=== PATIENT | female | born 1995 | race African-American/Black ===

== ENCOUNTER 2017-06-06 19:56 | Emergency (ER) | payer OTHER ==
[~2017-06-06] VITALS: Ht 152.4 cm; Wt 64.9 kg
[2017-06-06] MEDS ORDERED: NORCO 5-325 TA1 EACH PO (22:14)
[2017-06-06 22:54] VITALS: BP 110/86
[2017-06-07 20:10] LABS: CHLAMYDIA TRACHOMATIS-PCR Negative (Negative); NEISSERIA GONORRHEA-PCR Negative (Negative)
== END 2017-06-06 22:56 | disposition home or self-care (01) ==
LOC: ER 19:56
PROVIDERS: Emergency Medicine
DX: N83.201 Unspecified ovarian cyst, right side (principal); J45.909 Unspecified asthma, uncomplicated

== ENCOUNTER 2017-08-29 09:11 | Emergency (ER) | payer OTHER ==
[~2017-08-29] VITALS: Ht 154.9 cm; Wt 63.5 kg
[~2017-08-29 09:11] MED LIST: NORCO 5-325 TA1 EACH PO
[2017-08-29 10:36] LABS: ABSOLUTE NEUTROPHILS 2.1 thou/uL (1.4-8.2); BASOPHILS 0.7 % (0.0-2.0); EOSINOPHILS 1.9 % (0.0-3.0); HEMATOCRIT 35.2 % (37.0-47.0); HEMOGLOBIN 11.2 gm/dL (12.0-15.0); LYMPHOCYTES 35.5 % (24.0-44.0); MCH 22.4 pg (26.0-34.0); MCHC 31.7 g/dL (28.0-37.0); MCV 70.8 fL (80.0-100.0); PLATELET COUNT 255 thou/uL (150-400); POLYS 52.9 % (36.0-66.0); RBC 4.98 mil/uL (4.20-5.00); RDW 13.9 % (10.5-14.5)
[2017-08-29 10:42] LABS: MANUAL DIFF NO
[2017-08-29 10:47] LABS: CALCIUM 8.8 mg/dL (8.5-10.1); CREATININE 0.6 mg/dL (0.6-1.0); POTASSIUM 3.4 mmol/L (3.5-5.1)
[2017-08-29 10:52] LABS: ALBUMIN 3.5 g/dL (3.4-5.0); DIRECT BILIRUBIN 0.1 mg/dL (<0.1-0.3); TOTAL BILIRUBIN 0.7 mg/dL (<0.1-1.0); TOTAL PROTEIN 7.2 g/dL (6.4-8.2)
[2017-08-29 11:19] LABS: ANISOCYTOSIS SLIGHT; HYPOCHROMASIA 2+; MICROCYTES 1+
[2017-08-29 11:56] LABS: URINE BILIRUBIN NEGATIVE (Negative); URINE BLOOD NEGATIVE (Negative); URINE COLOR YELLOW; URINE GLUCOSE-RANDOM* NEGATIVE (Negative); URINE KETONES NEGATIVE (Negative); URINE LEUKOCYTES-REFLEX NEGATIVE (Negative); URINE PROTEIN (DIPSTICK) NEGATIVE (Negative)
[2017-08-29] MEDS ORDERED: ZOFRAN ODT4 MG PO (12:28)
[2017-08-29] MEDS ORDERED: NORCO 5-325 TA1 EACH PO (12:28)
[2017-08-29 12:35] VITALS: BP 115/73
== END 2017-08-29 12:35 | disposition home or self-care (01) ==
LOC: ER 09:11
PROVIDERS: Emergency Medicine
DX: N83.291 Other ovarian cyst, right side (principal); J45.909 Unspecified asthma, uncomplicated

== ENCOUNTER 2017-09-26 19:20 | Emergency (ER) | payer OTHER ==
[~2017-09-26] VITALS: Ht 154.9 cm; Wt 71.2 kg
[~2017-09-26 19:20] MED LIST changes: +ZOFRAN ODT4 MG PO
[2017-09-26 19:33] VITALS: BP 124/83
[2017-09-26 19:57] LABS: URINE BILIRUBIN NEGATIVE (Negative); URINE BLOOD NEGATIVE (Negative); URINE COLOR YELLOW; URINE GLUCOSE-RANDOM* NEGATIVE (Negative); URINE KETONES NEGATIVE (Negative); URINE NITRITE NEGATIVE (Negative); URINE PROTEIN (DIPSTICK) NEGATIVE (Negative); URINE SPECIFIC GRAVITY 1.015 (1.003-1.035)
== END 2017-09-26 20:47 | disposition home or self-care (01) ==
LOC: ER 19:20
PROVIDERS: Nurse Practitioner
DX: Z32.02 Encounter for pregnancy test, result negative (principal); J45.909 Unspecified asthma, uncomplicated

== ENCOUNTER 2018-05-28 13:10 | Emergency (ER) | payer OTHER ==
[~2018-05-28] VITALS: Ht 154.9 cm; Wt 64.4 kg
[2018-05-28 13:27] LABS: URINE BILIRUBIN NEGATIVE (Negative); URINE BLOOD NEGATIVE (Negative); URINE CLARITY CLEAR; URINE COLOR YELLOW; URINE GLUCOSE-RANDOM* NEGATIVE (Negative); URINE KETONES NEGATIVE (Negative); URINE LEUKOCYTES-REFLEX NEGATIVE (Negative); URINE NITRITE-REFLEX NEGATIVE (Negative); URINE PROTEIN (DIPSTICK) NEGATIVE (Negative); URINE UROBILINOGEN 0.2 E.U./dl (0.2-1.0)
[2018-05-28 14:22] LABS: ABSOLUTE NEUTROPHILS 3.8 thou/uL (1.4-8.2); BASOPHILS 0.5 % (0.0-2.0); EOSINOPHILS 1.8 % (0.0-3.0); HEMATOCRIT 36.8 % (37.0-47.0); HEMOGLOBIN 11.9 gm/dL (12.0-15.0); LYMPHOCYTES 21.2 % (24.0-44.0); MCH 22.7 pg (26.0-34.0); MCHC 32.4 g/dL (28.0-37.0); MCV 70.1 fL (80.0-100.0); MONOCYTES 8.1 % (1.0-8.0); PLATELET COUNT 256 thou/uL (150-400); POLYS 68.4 % (36.0-66.0); RBC 5.26 mil/uL (4.20-5.00); RDW 13.2 % (10.5-14.5); WBC 5.5 thou/uL (4.0-11.0)
[2018-05-28 14:29] LABS: CALCIUM 9.2 mg/dL (8.5-10.1); CREATININE 0.7 mg/dL (0.6-1.0)
[2018-05-28 14:34] LABS: ALBUMIN 3.5 g/dL (3.4-5.0); TOTAL BILIRUBIN 0.2 mg/dL (<0.1-1.0); TOTAL PROTEIN 7.6 g/dL (6.4-8.2)
[2018-05-28 15:33] LABS: ANISOCYTOSIS 1+; HYPOCHROMASIA 1+; MICROCYTES 1+
[2018-05-28] MEDS ORDERED: MIRALAX17 GM PO (16:19)
[2018-05-28] MEDS ORDERED: LEVSIN0.125 MG PO (16:19)
[2018-05-28 17:14] VITALS: BP 103/64
[2018-05-30 14:06] LABS: NEISSERIA GONORRHEA-PCR Negative (Negative)
== END 2018-05-28 17:15 | disposition home or self-care (01) ==
LOC: ER 13:10
PROVIDERS: Physician Assistant
DX: K59.00 Constipation, unspecified (principal); D64.9 Anemia, unspecified; J45.909 Unspecified asthma, uncomplicated

== ENCOUNTER 2019-05-23 18:09 | Emergency (ER) | payer OTHER ==
[~2019-05-23] VITALS: Ht 154.9 cm; Wt 78.0 kg
[~2019-05-23 18:09] MED LIST changes: +LEVSIN0.125 MG PO; +MIRALAX17 GM PO
[2019-05-23 18:44] LABS: URINE BILIRUBIN NEGATIVE (Negative); URINE BLOOD NEGATIVE (Negative); URINE CLARITY CLEAR; URINE COLOR YELLOW; URINE GLUCOSE-RANDOM* NEGATIVE (Negative); URINE KETONES NEGATIVE (Negative); URINE LEUKOCYTES-REFLEX NEGATIVE (Negative); URINE NITRITE-REFLEX NEGATIVE (Negative); URINE PROTEIN (DIPSTICK) NEGATIVE (Negative); URINE UROBILINOGEN 0.2 E.U./dl (0.2-1.0)
[2019-05-23 18:54] LABS: AMP/METHAMP Negative (Negative); BARBITURATES Negative (Negative); BENZODIAZEPINES Negative (Negative); COCAINE Negative (Negative); METHADONE Negative (Negative); OPIATES Negative (Negative); PCP Negative (Negative)
[2019-05-23 18:59] LABS: BASOPHILS 0.4 % (0.0-2.0); HEMATOCRIT 36.3 % (37.0-47.0); HEMOGLOBIN 11.4 gm/dL (12.0-15.0); LYMPHOCYTES 19.8 % (24.0-44.0); MCH 22.2 pg (26.0-34.0); MCHC 31.3 g/dL (28.0-37.0); MCV 70.9 fL (80.0-100.0); MONOCYTES 10.7 % (1.0-8.0); PLATELET COUNT 287 thou/uL (150-400); POLYS 68.1 % (36.0-66.0); RBC 5.12 mil/uL (4.20-5.00); RDW 13.6 % (10.5-14.5); WBC 10.3 thou/uL (4.0-11.0)
[2019-05-23 19:09] LABS: ANION GAP 8 mmol/L (7-16); BUN 8 mg/dL (7-18); CHLORIDE 103 mmol/L (98-107); CO2 28 mmol/L (21-32); CREATININE 0.7 mg/dL (0.6-1.0); GLUCOSE 100 mg/dL (74-106); SODIUM 139 mmol/L (136-145)
[2019-05-23 19:19] LABS: ALBUMIN 3.4 g/dL (3.4-5.0); MAGNESIUM 1.8 mg/dL (1.8-2.4); SGOT 16 U/L (15-37); SGPT 16 U/L (30-65); TOTAL BILIRUBIN 0.1 mg/dL (<0.1-1.0); TOTAL PROTEIN 7.9 g/dL (6.4-8.2); TROPONIN-I <0.06 ng/mL (<0.06)
[2019-05-23 19:23] LABS: D-DIMER 0.19 ug/mLFEU (0.19-0.50); PROTIME 10.5 Seconds (9.3-11.4)
[2019-05-23 19:34] LABS: ANISOCYTOSIS 1+
[2019-05-23] MEDS ORDERED: VENTOLIN HFA 1818 GM INH (19:34)
[2019-05-23] MEDS ORDERED: NAPROSYN500 MG PO (19:34)
[2019-05-23 19:35] LABS: HYPOCHROMASIA SLIGHT; MICROCYTES 1+
[2019-05-23 20:18] VITALS: BP 108/64
--- NOTE | 2019-05-24 07:34 | EKG ---
[place] [address] [facility] [employer] [place] [address] ELECTROCARDIOGRAM REPORT Name: LUIS ARMANDO YBARRA [id number] ������������������ Admission: 05/23/19 ������������������ Attend Phys: Discharge: 05/23/19 ������������������ Date of : 89 Report #: [id number] ����������������������������������������������������������������� [id number] THIS REPORT FOR: //name// [facility] ED Test Date: 2019-05-23 Test Time: 18:41:07 Pat Name: LUIS ARMANDO YBARRA Department: Room: Gender: F [employer]: minnie [place]ipt[place] : 1995 Requested By: Praful Mays Order Number: [id number] MD: Nathanael Cao Measurements Intervals [place] Rate: 101 P: 49 ND: 144 QRS: 38 QRSD: 96 T: 19 QT: 326 QTc: 423 Interpretive Statements Sinus tachycardia Otherwise normal tracing No previous ECG available for comparison Electronically Signed On 05-24-2019 7:34:39 CDT by Nathanael Cao [email or web address] ��������������������������������������������� <ELECTRONICALLY SIGNED> ���������������������������������������� By: Nathanael Cao MD, [facility] ��������������������������������������������� 05/24/19 0734 1841 1841 Nathanael Cao MD, FACC /EPI
== END 2019-05-23 20:38 | disposition home or self-care (01) ==
LOC: ER 18:09
PROVIDERS: Emergency Medicine
DX: J45.909 Unspecified asthma, uncomplicated (principal); D50.9 Iron deficiency anemia, unspecified; R35.0 Frequency of micturition; Z79.899 Other long term (current) drug therapy

== ENCOUNTER 2019-06-19 16:33 | Emergency (ER) | payer OTHER ==
[~2019-06-19] VITALS: Ht 154.9 cm; Wt 78.0 kg
[~2019-06-19 16:33] MED LIST changes: +NAPROSYN500 MG PO; +VENTOLIN HFA 1818 GM INH
[2019-06-19 16:56] LABS: URINE BILIRUBIN NEGATIVE (Negative); URINE BLOOD TRACE (Negative); URINE CLARITY SL CLOUDY; URINE COLOR YELLOW; URINE GLUCOSE-RANDOM* NEGATIVE (Negative); URINE KETONES NEGATIVE (Negative); URINE LEUKOCYTES-REFLEX TRACE (Negative); URINE NITRITE-REFLEX NEGATIVE (Negative); URINE PROTEIN (DIPSTICK) TRACE (Negative); URINE SPECIFIC GRAVITY 1.015 (1.005-1.035); URINE UROBILINOGEN 0.2 E.U./dl (0.2-1.0)
[2019-06-19 17:42] LABS: SQUAMOUS >10 Many /LPF (0-3)
[2019-06-19 17:43] LABS: BACTERIA 1-9 Few /HPF (None Seen); CASTS None Seen /LPF (None Seen); URIC ACID CRYSTALS 4-10 Moderate /LPF (None Seen); URINE RBC 0-2 Rare /HPF (0-2)
[2019-06-19] MEDS ORDERED: KEFLEX500 M1 PO (18:06)
[2019-06-19 18:14] VITALS: BP 133/75
== END 2019-06-19 18:10 | disposition home or self-care (01) ==
LOC: ER 16:33
PROVIDERS: Nurse Practitioner Family
DX: N39.0 Urinary tract infection, site not specified (principal); R30.0 Dysuria; J45.909 Unspecified asthma, uncomplicated

== ENCOUNTER 2020-11-07 16:02 | Emergency (ER) | payer OTHER ==
[~2020-11-07] VITALS: Ht 154.9 cm; Wt 81.2 kg
[~2020-11-07 16:02] MED LIST changes: +KEFLEX500 M1 PO
[2020-11-07] MEDS ORDERED: METFORMIN HCL500 M3 PO (16:14)
[2020-11-07 16:43] LABS: URINE BILIRUBIN NEGATIVE (Negative); URINE BLOOD NEGATIVE (Negative); URINE CLARITY CLEAR; URINE COLOR YELLOW; URINE GLUCOSE-RANDOM* NEGATIVE (Negative); URINE KETONES NEGATIVE (Negative); URINE LEUKOCYTES-REFLEX NEGATIVE (Negative); URINE NITRITE-REFLEX NEGATIVE (Negative); URINE PROTEIN (DIPSTICK) NEGATIVE (Negative); URINE SPECIFIC GRAVITY 1.025 (1.005-1.035)
[2020-11-07 19:42] LABS: ABSOLUTE NEUTROPHILS 4.9 thou/uL (1.4-8.2); BASOPHILS 0.6 % (0.0-2.0); EOSINOPHILS 1.6 % (0.0-3.0); HEMOGLOBIN 10.9 gm/dL (12.0-15.0); LYMPHOCYTES 27.6 % (24.0-44.0); MCH 21.7 pg (26.0-34.0); MCHC 31.2 g/dL (28.0-37.0); MCV 69.6 fL (80.0-100.0); MONOCYTES 8.6 % (1.0-8.0); PLATELET COUNT 355 thou/uL (150-400); POLYS 61.6 % (36.0-66.0); RBC 5.02 mil/uL (4.20-5.00); RDW 14.2 % (10.5-14.5)
[2020-11-07 19:47] LABS: CALCIUM 9.3 mg/dL (8.5-10.1); CREATININE 0.7 mg/dL (0.6-1.0); POTASSIUM 3.8 mmol/L (3.5-5.1)
[2020-11-07 19:53] LABS: ALBUMIN 3.5 g/dL (3.4-5.0); TOTAL BILIRUBIN 0.3 mg/dL (0.2-1.0)
[2020-11-07] MEDS ORDERED: TORADOL 10 MG T10 MG PO (21:49)
[2020-11-07] MEDS ORDERED: FLAGYL500 M1 PO (21:49)
[2020-11-07 22:17] VITALS: BP 108/71
== END 2020-11-07 22:18 | disposition home or self-care (01) ==
LOC: ER 16:02
PROVIDERS: Emergency Medicine; Physician Assistant
DX: R10.31 Right lower quadrant pain (principal); R19.7 Diarrhea, unspecified; J45.909 Unspecified asthma, uncomplicated; Z79.899 Other long term (current) drug therapy

== ENCOUNTER 2021-07-07 02:22 | Emergency (ER) | payer OTHER ==
[~2021-07-07] VITALS: Ht 154.9 cm; Wt 78.0 kg
[~2021-07-07 02:22] MED LIST changes: +FLAGYL500 M1 PO; +METFORMIN HCL500 M3 PO; +TORADOL 10 MG T10 MG PO
[2021-07-07 02:26] VITALS: BP 124/85
[2021-07-07 05:11] LABS: URINE BILIRUBIN NEGATIVE (Negative); URINE BLOOD 3+ (Negative); URINE CLARITY SL CLOUDY; URINE COLOR YELLOW; URINE GLUCOSE-RANDOM* NEGATIVE (Negative); URINE KETONES NEGATIVE (Negative); URINE LEUKOCYTES-REFLEX NEGATIVE (Negative); URINE NITRITE-REFLEX NEGATIVE (Negative); URINE PROTEIN (DIPSTICK) TRACE (Negative); URINE SPECIFIC GRAVITY >= 1.030 (1.005-1.035)
[2021-07-07 05:17] LABS: BASOPHILS 0.5 % (0.0-2.0); EOSINOPHILS 1.6 % (0.0-3.0); HEMATOCRIT 35.1 % (37.0-47.0); HEMOGLOBIN 10.9 gm/dL (12.0-15.0); LYMPHOCYTES 21.6 % (24.0-44.0); MCH 20.9 pg (26.0-34.0); MCHC 31.1 g/dL (28.0-37.0); MCV 67.2 fL (80.0-100.0); MONOCYTES 10.1 % (1.0-8.0); PLATELET COUNT 348 thou/uL (150-400); POLYS 66.2 % (36.0-66.0); RBC 5.22 mil/uL (4.20-5.00); RDW 15.7 % (10.5-14.5); WBC 10.5 thou/uL (4.0-11.0)
[2021-07-07 05:24] LABS: BACTERIA-REFLEX 1-9 Few /HPF (None Seen); CASTS None Seen /LPF (None Seen); CRYSTALS None Seen /LPF (None Seen); MUCUS >6 Heavy strn/LPF (None Seen); SQUAMOUS 4-10 Moderate /LPF (0-3); URINE RBC >20 Many /HPF (NONE SEEN); URINE WBC-REFLEX 0-5 Rare /HPF (0-5)
== END 2021-07-07 06:15 | disposition home or self-care (01) ==
LOC: ER 02:22
PROVIDERS: Emergency Medicine
DX: N93.9 Abnormal uterine and vaginal bleeding, unspecified (principal); J45.909 Unspecified asthma, uncomplicated

== ENCOUNTER 2021-10-16 16:00 | Emergency (ER) | payer OTHER ==
[~2021-10-16] VITALS: Ht 154.9 cm; Wt 85.7 kg
[2021-10-16 16:09] VITALS: BP 147/49
[2021-10-16 16:48] LABS: URINE BILIRUBIN NEGATIVE (Negative); URINE BLOOD 3+ (Negative); URINE CLARITY SL CLOUDY; URINE COLOR YELLOW; URINE GLUCOSE-RANDOM* NEGATIVE (Negative); URINE KETONES NEGATIVE (Negative); URINE LEUKOCYTES-REFLEX NEGATIVE (Negative); URINE NITRITE-REFLEX NEGATIVE (Negative); URINE PROTEIN (DIPSTICK) NEGATIVE (Negative); URINE SPECIFIC GRAVITY 1.015 (1.005-1.035); URINE UROBILINOGEN 0.2 E.U./dl (0.2-1.0)
[2021-10-16 17:25] LABS: MUCUS 0-3 Light strn/LPF (None Seen); SQUAMOUS 0-3 Few /LPF (0-3)
[2021-10-16 17:26] LABS: CASTS None Seen /LPF (None Seen); URINE RBC >20 Many /HPF (NONE SEEN); URINE WBC-REFLEX 0-5 Rare /HPF (0-5)
[2021-10-16 17:27] LABS: BACTERIA-REFLEX 1-9 Few /HPF (None Seen); CRYSTALS None Seen /LPF (None Seen)
[2021-10-16] MEDS ORDERED: METRONIDAZOLE500 M4 PO (17:30)
[2021-10-16] MEDS ORDERED: DOXYCYCLINE 10100 MG PO (17:30)
== END 2021-10-16 17:37 | disposition home or self-care (01) ==
LOC: ER 16:00
PROVIDERS: Emergency Medicine
DX: R30.0 Dysuria (principal); R31.9 Hematuria, unspecified; J45.909 Unspecified asthma, uncomplicated

== ENCOUNTER 2022-01-18 23:55 | Emergency (ER) | payer OTHER ==
[~2022-01-18] VITALS: Ht 160 cm; Wt 72.6 kg
[2022-01-18 23:55] VITALS: BP 122/76
[~2022-01-18 23:55] MED LIST changes: +DOXYCYCLINE 10100 MG PO; +METRONIDAZOLE500 M4 PO
[2022-01-19] MEDS ORDERED: PROAIR HFA8.5 GM INH (00:09)
[2022-01-19] MEDS ORDERED: FLONASE 0.05%50 MCG NARES (00:09)
== END 2022-01-19 00:15 | disposition home or self-care (01) ==
LOC: ER 23:55
DX: R09.81 Nasal congestion (principal); Z20.822 Contact with and (suspected) exposure to COVID-19; J45.909 Unspecified asthma, uncomplicated; Z79.899 Other long term (current) drug therapy